=== PATIENT | male | born 1990 ===

== ENCOUNTER → 2018-11-19 | Outpatient (REF) | payer SELFPAY ==
[2018-11-19 13:18] LABS: SEMEN APPEARANCE OPAQUE (OPAQUE); SEMEN VISCOSITY LIQUID (LIQUID); SEMEN VOLUME 2.8 ml (2.0-5.0); SPERM CONCENTRATION 108.3 M/ml (>=15.0); WBC CONCENTRATION <=1 M/ml (<=1 M/ml)
== END ==
LOC: M LAB REF 12:57
PROVIDERS: ATTEND Physician Assistant
DX: Z31.41 Encounter for fertility testing (principal)